=== PATIENT | female | born 1965 | race Caucasian/White ===

== ENCOUNTER 2022-03-24 21:37 | Emergency (ER) | payer BC ==
[2022-03-24 23:04] LABS: HEMOGLOBIN 9.2 gm/dl (12.3-15.3); RED BLOOD COUNT 3.49 M/UL (4.00-5.10); WHITE BLOOD COUNT 7.5 K/UL (4.5-11.0)
== END 2022-03-25 01:00 | disposition left against medical advice (07) ==
LOC: ER1 21:37
PROVIDERS: Nurse Practitioner
DX: M79.89 Other specified soft tissue disorders (principal); N18.9 Chronic kidney disease, unspecified; E66.9 Obesity, unspecified
CPT/HCPCS: 70450; 80053; 80076; 81001; 82140; 83880; 85025; 87040; 87086; 99283

== ENCOUNTER 2022-03-26 16:39 | Emergency (ER) | payer BC, MEDICARE ==
[2022-03-26 17:53] LABS: HEMOGLOBIN 9.5 gm/dl (12.3-15.3); RED BLOOD COUNT 3.61 M/UL (4.00-5.10); WHITE BLOOD COUNT 7.9 K/UL (4.5-11.0)
== END 2022-03-26 19:25 | disposition short-term general hospital (02) ==
LOC: ER1 16:39
PROVIDERS: Emergency Medicine
DX: I61.4 Nontraumatic intracerebral hemorrhage in cerebellum (principal); I13.0 Hypertensive heart and chronic kidney disease with heart failure and stage 1 through stage 4 chronic kidney disease, or unspecified chronic kidney disease; N18.9 Chronic kidney disease, unspecified; I50.9 Heart failure, unspecified; D64.9 Anemia, unspecified; I16.1 Hypertensive emergency; Z20.822 Contact with and (suspected) exposure to COVID-19
CPT/HCPCS: 0240U; 36600; 70450; 71045; 80053; 81001; 82550; 82553; 82803; 83880; 84484; 85025; 87040; 93005; 94640; 94664; 94760; 96374; 96375; 99285; J2405